=== PATIENT | male | born 1980 | race Caucasian/White ===

== ENCOUNTER 2022-11-11 10:01 | Emergency (ER) | payer OTHER, SELFPAY ==
[2022-11-11 10:07] VITALS: BP 110/80; PULSE 84; RESP 18; TEMP 37.1; O2SAT 97; BMI 32.9
== END 2022-11-11 12:28 | disposition left against medical advice (07) ==
PROVIDERS: Emergency Provider Emergency Medicine; PCP Internal Medicine
DX: Z53.21 Procedure and treatment not carried out due to patient leaving prior to being seen by health care provider (principal)